=== PATIENT | male | born 1950 | race African-American/Black ===

== ENCOUNTER 2017-02-13 13:12 | Emergency (ER) | payer OTHER, MEDICARE ==
[2015-04-07 09:19] VITALS: BMI 28.1
[~2017-02-13 13:12] MED LIST: AVODART0.5 MG PO; CRESTOR20 MG PO; CYCLOBENZAPRINE10 MG PO; HCTZ25 MG PO; HYDROCODON-ACE1 EAC7 PO; LEVAQUIN750 MG PO; NORVASC10 MG PO
== END 2017-02-13 13:55 | disposition left against medical advice (07) ==
LOC: D.ER 13:12
DX: R10.9 Unspecified abdominal pain (principal); I10 Essential (primary) hypertension

== ENCOUNTER 2018-05-24 17:37 | Emergency (ER) | payer OTHER, MEDICARE ==
[~2018-05-24] VITALS: Ht 195.6 cm; Wt 110.9 kg
[2018-05-24 17:52] VITALS: BP 124/68; Ht 195.6 cm; Wt 110.9 kg
[2018-05-24] MEDS ORDERED: BP MEDICATION (17:55)
== END 2018-05-24 20:23 | disposition left against medical advice (07) ==
LOC: D.ER 17:37
DX: M79.609 Pain in unspecified limb (principal)

== ENCOUNTER 2018-05-26 18:45 | Emergency (ER) | payer OTHER, MEDICARE ==
[2018-05-24 17:52] VITALS: BMI 29.0
[~2018-05-26 18:45] MED LIST changes: +BP MEDICATION
== END 2018-05-26 19:02 | disposition left against medical advice (07) ==
LOC: D.ER 18:45
DX: M79.609 Pain in unspecified limb (principal)

== ENCOUNTER → 2018-06-06 10:55 | Outpatient (CLI) | payer MEDICARE ==
[2018-05-24 17:52] VITALS: BMI 29.0
== END | disposition home or self-care (01) ==
LOC: D.MRI 10:55
DX: M51.36 Other intervertebral disc degeneration, lumbar region (principal)